=== PATIENT | female | born 1960 | race Caucasian/White ===

== ENCOUNTER 2017-02-22 23:10 | Emergency (ER) | payer BC, OTHER ==
[~2017-02-22] VITALS: Ht 165.1 cm; Wt 80.7 kg
[~2017-02-22 23:10] MED LIST: ADDE10 PO; ALLE24TA PO; ARIC10TA PO; CEPH500C3 PO; CETI5CHW PO; EFFE150C PO; IMIT25TA PO; MEDR4PAK3 PO
[2017-02-22 23:19] VITALS: BP 128/74; PULSE 71; RESP 18; TEMP 99.5; O2SAT 97
[2017-02-23 00:27] VITALS: BP 120/74; PULSE 71; RESP 16; TEMP 99.5; O2SAT 97
[2017-02-23] MEDS ORDERED: ADDE30XR PO (00:48)
[2017-02-23] MEDS ORDERED: ARIC23TA PO (00:48)
[2017-02-23] MEDS ORDERED: CETI10 PO (00:48)
[2017-02-23] MEDS ORDERED: FEXO1TAB97 PO (00:48)
[2017-02-23] MEDS ORDERED: DIVA250ER PO (00:48)
[2017-02-23] MEDS ORDERED: EFFE150C PO (00:48)
--- NOTE | 2017-02-23 01:13 | PD ---
HPI Chief Complaint: GI Complaint Time Seen by Provider: 00:08 Travel History International Travel<30 days: No Contact w/Intl Traveler<30days: No Traveled to known affect area: No History of Present Illness HPI Patient is a 48-year-old female who has a history of having Giardia year ago at that time she was up in [place]. She was exposed to ground well water. And she became bloated flatulent and her doctor put her on Flagyl and it cured her symptoms. Now she is coming in 3 days ago she was using ground water to pressure wash house and she fell and has a bruise on her right femur area. Now she is complaining of right lower abdomen pain bloating and flatulance . Patient has a history of having her appendix out and 82. And her abdomen pain which is complaining of his right lower mid. She says is right over her appendicitis scar. She is no nausea no vomiting however tonight while in the computer she became chilled and flushed pale and apparently diaphoretic. At triaged she apparently said that she looked diaphoretic as well.. Pt is afebrile at triage and 99. She is convinced she has Giardia again. PFSH Past Medical History Arthritis: No Asthma: Yes (WITH STRESS) Anxiety: Yes Depression: Yes Heart Rhythm Problems: No Cancer: Yes (BREAST) Cardiovascular Problems: No High Cholesterol: Yes Chemotherapy: Yes (FOR BREAST CA 2008) Chest Pain: No Congestive Heart Failure: No Cerebrovascular Accident: No Patient Takes Glucophage: No Gastrointestinal Disorders: Yes GERD: No Genitourinary: No Headaches: Yes (MIGRAINES) Hepatitis: No Hiatal Hernia: No Hypertension: No Medical other: Yes (CLOSED HEAD INJURY) Musculoskeletal: No Neurologic: No Reproductive: No Respiratory: No Migraines: Yes Myocardial Infarction: No Renal Failure: No Seizures: No Sleep Apnea: No Ulcer: No ?: Not Menopausal: Yes Past Surgical History Appendectomy: Yes Cardiac Surgery: No Cholecystectomy: No Ear Surgery: No Endocrine Surgery: No Eye Surgery: No Genitourinary Surgery: No Gynecologic Surgery: Yes (LEFT BREAST LUMPECTOMY, RIGHT OOPHERECTOMY) Neurologic Surgery: No Oral Surgery: No Thoracic Surgery: No Other Surgery: Yes Social History Alcohol Use: No Tobacco Use: No Substance Use: No Allergies-Medications (Allergen,Severity, Reaction): Coded Allergies: Sulfa (Sulfonamide Antibiotics) (Verified Allergy, Severe, HIVES, 02/23/17 ) bee venom protein (honey bee) (Verified Allergy, Severe, Edema, 02/23/17) latex (Verified Allergy, Severe, RASH, 02/23/17) Reported Meds & Prescriptions Reported Meds & Active Scripts Active Metronidazole 500 Mg Tab 500 Mg PO TID Protonix (Pantoprazole Sodium) 40 Mg Tab 40 Mg PO DAILY Reported Cetirizine (Cetirizine HCl) 10 Mg Tab 10 Mg PO DAILY Adderall Xr 24 HR (Amphetamine/Dextroamphetamine) 30 Mg Cap 30 Mg PO DAILY Once daily in the morning. Depakote ER (Divalproex Sodium) 250 Mg Natalie 250 Mg PO HS Aricept (Donepezil) 23 Mg Tab 10 Mg PO HS Do not split, crushed or chewed. Kacy-D 24 Hour Allergy (Fexofenadine-Pseudoephedrine ER 24 HR) 180-240 Natalie 1 Tab PO DAILY Effexor XR 24 HR (Venlafaxine HCl) 150 Mg Cap 150 Mg PO DAILY Review of Systems Except as stated in HPI: all other systems reviewed are Neg General / Constitutional: Positive: Fever Gastrointestinal: Positive: Abdominal Pain (bloating flatulence burping) Physical Exam Narrative GENERAL: Patient is in no distress nontoxic-appearing awake alert SKIN: Warm and dry. HEAD: Atraumatic. Normocephalic. EYES: Pupils equal and round. No scleral icterus. No injection or drainage. ENT: No nasal bleeding or discharge. Mucous membranes pink and moist. NECK: Trachea midline. No JVD. CARDIOVASCULAR: Regular rate and rhythm. RESPIRATORY: No accessory muscle use. Clear to auscultation. Breath sounds equal bilaterally. GASTROINTESTINAL: Abdomen mild vague tenderness in the right lower quadrant. Patient has had an appendectomy. Soft, non-tender, nondistended. Hepatic and splenic margins not palpable. MUSCULOSKELETAL: Extremities without clubbing, cyanosis, or edema. No obvious deformities. NEUROLOGICAL: Awake and alert. No obvious cranial nerve deficits. Motor grossly within normal limits. Five out of 5 muscle strength in the arms and legs. Normal speech. PSYCHIATRIC: Appropriate mood and affect; insight and judgment normal. Data Data Last Documented VS Vital Signs Date Time Temp Pulse Resp B/P (MAP) Pulse Ox O2 Delivery O2 Flow Rate FiO2 02/23/17 02:26 72 20 120/68 (85) 98 02/23/17 00:27 99.5 Orders Orders Influenzae A/B Antigen (02/23/17 01:10) Stool Ova And Parasite Screen (02/23/17 01:10) Acetaminophen (Tylenol) (02/23/17 01:15) MDM Medical Decision Making Medical Screen Exam Complete: Yes Emergency Medical Condition: Yes Differential Diagnosis Viral gastroenteritis versus gallbladder disease versus GERD versus nonspecific abdominal pain vs Giardia infection Narrative Course Patient's ultrasound done point of care by this James shows no gallstones she has a distended gallbladder but no signs of pericholecystic fluid and her common bile duct is normal there is no signs of cholecystitis. She asks if I would write her FlagyllRX I send a stool sample and given RX and ask her to await the lab results before starting Flagyl... pt agrees with the plan Procedures Procedure Narrative Point of care ultrasound bedside-- gallbladder study no gallstones no pericholecystic fluid common bile duct within normal limits negative study Diagnosis Primary Impression: Pain in the abdomen Qualified Codes: R10.84 - Generalized abdominal pain Additional Impressions: Bloating symptom Contusion, hip and thigh Patient Instructions: Abdominal Pain (ED), General Instructions Scripts Metronidazole (Metronidazole) 500 Mg Tab 500 MG PO TID for Infection, #30 TAB 0 Refills Prov: Karl See MD 02/23/17 Pantoprazole (Protonix) 40 Mg Tab 40 MG PO DAILY for Reflux, #30 TAB 0 Refills Prov: Karl See MD 02/23/17 Disposition: 01 DISCHARGE HOME Condition: Good Karl See MD Feb 23, 2017 01:12
[2017-02-23] MEDS ORDERED: ACETAMINOPHEN 500 MG CPLT PO ONE (01:15)
[2017-02-23] MEDS ORDERED: PROT40TA PO (02:09)
[2017-02-23] MEDS ORDERED: METR1TAB76 PO (02:09)
[2017-02-23 02:26] VITALS: BP 120/68
== END 2017-02-23 02:28 | disposition home or self-care (01) ==
LOC: PHED 23:10
DX: R10.84 Generalized abdominal pain (principal); R14.0 Abdominal distension (gaseous); S70.00XA Contusion of unspecified hip, initial encounter; J45.909 Unspecified asthma, uncomplicated; F32.9 Major depressive disorder, single episode, unspecified; E78.00 Pure hypercholesterolemia, unspecified; Z85.3 Personal history of malignant neoplasm of breast; W19.XXXA Unspecified fall, initial encounter
CPT/HCPCS: 87328; 87329; 87804